=== PATIENT | male | born 1975 | race Caucasian/White ===

== ENCOUNTER 2018-12-30 19:03 | Emergency (ER) | payer MEDICAID ==
[~2018-12-30] VITALS: Ht 190.5 cm; Wt 115.7 kg
[2018-12-30 19:11] VITALS: Ht 190.5 cm; Wt 115.7 kg
[2018-12-30 20:17] VITALS: BP 126/79
== END 2018-12-30 20:17 | disposition home or self-care (01) ==
LOC: ED 19:03
DX: S89.91XA Unspecified injury of right lower leg, initial encounter (principal); Z90.49 Acquired absence of other specified parts of digestive tract; Z98.890 Other specified postprocedural states; W22.8XXA Striking against or struck by other objects, initial encounter; Y93.89 Activity, other specified; Y92.89 Other specified places as the place of occurrence of the external cause; Y99.8 Other external cause status

== ENCOUNTER 2020-06-12 13:37 | Emergency (ER) | payer MEDICAID, SELFPAY ==
[~2020-06-12] VITALS: Ht 190.5 cm; Wt 122.5 kg
[2020-06-12 13:42] VITALS: BP 147/109; Ht 190.5 cm; Wt 122.5 kg
== END 2020-06-12 16:00 | disposition home or self-care (01) ==
LOC: ED 13:37
DX: U07.1 COVID-19 (principal); Z90.49 Acquired absence of other specified parts of digestive tract
CPT/HCPCS: U0003